=== PATIENT | female | born 1975 | race Caucasian/White ===

== ENCOUNTER 2018-06-12 04:32 | Emergency (ER) | payer SELFPAY ==
[~2018-06-12] VITALS: Ht 154.9 cm; Wt 61.4 kg
[2018-06-12 04:36] VITALS: Ht 154.9 cm; Wt 61.4 kg
[2018-06-12 05:03] LABS: BASOPHILS 0.1 % (0-2); EOSINOPHILS 0.6 % (0-7); HEMATOCRIT 43.7 % (36.0-48.0); HEMOGLOBIN 14.8 g/dL (12-16); IMMATURE GRANULOCYTES 0.4 % (0-5); LYMPHOCYTES 2.4 % (15-50); MCH 32.5 pg (26.0-34.0); MCHC 33.9 g/dL (31.0-37.0); MEAN PLATELET VOLUME 8.8 fL (7.4-10.4); MONOCYTES 2.4 % (2-11); NEUTROPHILS 94.1 % (40-80); PLATELET COUNT 412 10x3/uL (130-400); RBC 4.55 10x6/uL (4.00-5.40); RDW 12.3 % (11.5-14.5)
[2018-06-12 05:15] LABS: ALBUMIN 3.9 g/dL (3.4-5.0); ALKALINE PHOSPHATASE 95 U/L (46-116); ALT (SGPT) 34 U/L (10-68); BILIRUBIN - TOTAL 0.24 mg/dL (0.2-1.3); CALC OSMOLALITY 285 mosm/kg (275-300); CALCIUM 8.6 mg/dL (8.5-10.1); CARBON DIOXIDE 23.8 mmol/L (21.0-32.0); CHLORIDE - SERUM 105 mmol/L (98-107); CREATININE - SERUM 0.8 mg/dL (0.6-1.3); GLUCOSE 145 mg/dL (74-106); PROTEIN - SERUM 8.7 g/dL (6.4-8.2); SODIUM 141 mmol/L (136-145); UREA NITROGEN 17 mg/dL (7-18); eGFR NON AFRICAN AMERICAN 84 mL/min (90-120)
[2018-06-12 05:18] LABS: AMYLASE - SERUM 49 U/L (25-115); LIPASE 109 U/L (73-393); TROPONIN-I < 0.017 ng/mL (0.000-0.060)
[2018-06-12 05:52] LABS: APPEARANCE CLOUDY (CLEAR); BILIRUBIN NEGATIVE (NEGATIVE); COLOR YELLOW (YELLOW); GLUCOSE NEGATIVE (NEGATIVE); HCG URINE NEGATIVE (NEGATIVE); KETONE SMALL mg/dL (NEGATIVE); NITRITE NEGATIVE (NEGATIVE); PROTEIN 1+ mg/dL (NEGATIVE); UROBILINOGEN NORMAL (NORMAL)
[2018-06-12 05:55] LABS: AMORPHOUS SEDIMENT >1+ /lpf (NONE SEEN); BACTERIA FEW /hpf (NONE SEEN); EPITHELIAL CELLS 0-5 /hpf (0-5); RED CELLS - URINE 0-5 /hpf (0-5); WHITE CELLS - URINE 0-5 /hpf (0-5)
[2018-06-12] MEDS ORDERED: ZOFRAN4 MG PO (06:48)
[2018-06-12 08:16] VITALS: BP 125/61
== END 2018-06-12 08:15 | disposition home or self-care (01) ==
LOC: D.ER 04:32
PROVIDERS: Family Medicine
DX: K52.9 Noninfective gastroenteritis and colitis, unspecified (principal); D25.9 Leiomyoma of uterus, unspecified; F17.200 Nicotine dependence, unspecified, uncomplicated

== ENCOUNTER 2019-11-07 09:37 | Emergency (ER) | payer SELFPAY ==
[~2019-11-07] VITALS: Ht 154.9 cm; Wt 60.0 kg
[~2019-11-07 09:37] MED LIST: ZOFRAN4 MG PO
[2019-11-07 09:41] VITALS: Ht 154.9 cm; Wt 60.0 kg
[2019-11-07 10:37] VITALS: BP 134/80
[2019-11-07] MEDS ORDERED: HYDROCODON-ACE1 EAC7 PO (14:03)
== END 2019-11-07 10:38 | disposition home or self-care (01) ==
LOC: D.ER 09:37
DX: S91.012A Laceration without foreign body, left ankle, initial encounter (principal); W22.8XXA Striking against or struck by other objects, initial encounter; Y93.9 Activity, unspecified; Y92.9 Unspecified place or not applicable

== ENCOUNTER 2019-11-16 13:32 | Emergency (ER) | payer SELFPAY ==
[~2019-11-16] VITALS: Ht 154.9 cm; Wt 63.6 kg
[~2019-11-16 13:32] MED LIST changes: +HYDROCODON-ACE1 EAC7 PO
[2019-11-16 13:40] VITALS: Ht 154.9 cm; Wt 63.6 kg
[2019-11-16 14:04] VITALS: BP 112/63
== END 2019-11-16 14:05 | disposition home or self-care (01) ==
LOC: D.ER 13:32
DX: Z48.02 Encounter for removal of sutures (principal)

== ENCOUNTER 2020-01-28 13:31 | Emergency (ER) | payer SELFPAY ==
[~2020-01-28] VITALS: Ht 154.9 cm; Wt 60.9 kg
[2020-01-28 13:52] VITALS: BP 152/97; Ht 154.9 cm; Wt 60.9 kg
[2020-01-28 15:04] LABS: BASOPHILS 0.2 % (0-2); EOSINOPHILS 1.9 % (0-7); HEMATOCRIT 42.6 % (36.0-48.0); HEMOGLOBIN 14.4 g/dL (12-16); IMMATURE GRANULOCYTES 0.3 % (0-5); LYMPHOCYTES 24.7 % (15-50); MCH 32.4 pg (26.0-34.0); MCHC 33.8 g/dL (31.0-37.0); MCV 95.7 fL (80.0-100.0); MEAN PLATELET VOLUME 8.8 fL (7.4-10.4); MONOCYTES 7.5 % (2-11); NEUTROPHILS 65.4 % (40-80); RBC 4.45 10x6/uL (4.00-5.40); RDW 12.2 % (11.5-14.5); WBC 9.7 10x3/uL (4.8-10.8)
[2020-01-28 15:09] LABS: PLATELET COUNT 319 10x3/uL (130-400)
[2020-01-28 15:11] LABS: CALC OSMOLALITY 269 mosm/kg (275-300); CARBON DIOXIDE 25.2 mmol/L (21.0-32.0); CHLORIDE - SERUM 102 mmol/L (98-107); CREATININE - SERUM 0.7 mg/dL (0.6-1.3); POTASSIUM - SERUM 4.4 mmol/L (3.5-5.1); SODIUM 136 mmol/L (136-145); UREA NITROGEN 10 mg/dL (7-18); eGFR NON AFRICAN AMERICAN > 90 mL/min (90-120)
[2020-01-28 15:16] LABS: GLUCOSE 89 mg/dL (74-106)
[2020-01-28 15:18] LABS: ALBUMIN 3.7 g/dL (3.4-5.0); ALKALINE PHOSPHATASE 88 U/L (30-120); ALT (SGPT) 78 U/L (10-68); AMYLASE - SERUM 51 U/L (25-115); BILIRUBIN - TOTAL 0.41 mg/dL (0.2-1.3); C-REACTIVE PROTEIN 0.6 mg/dL (0.0-0.9); LIPASE 107 U/L (73-393); MAGNESIUM - SERUM 2.1 mg/dL (1.8-2.4); PROTEIN - SERUM 8.4 g/dL (6.4-8.2)
[2020-01-28 15:22] LABS: BILIRUBIN NEGATIVE (NEGATIVE); KETONE NEGATIVE (NEGATIVE); NITRITE NEGATIVE (NEGATIVE); UROBILINOGEN NORMAL mg/dL (< 2)
[2020-01-28 15:27] LABS: HCG URINE NEGATIVE (NEGATIVE)
== END 2020-01-28 16:22 | disposition home or self-care (01) ==
LOC: D.ER 13:31
PROVIDERS: Emergency Medicine
DX: B34.9 Viral infection, unspecified (principal); R74.01 Elevation of levels of liver transaminase levels; Z20.828 Contact with and (suspected) exposure to other viral communicable diseases; R11.2 Nausea with vomiting, unspecified; R19.7 Diarrhea, unspecified